=== PATIENT | female | born 1950 | race Caucasian/White ===

== ENCOUNTER 2024-11-14 11:04 | Emergency (ER) | payer OTHER ==
[~2024-11-14] VITALS: Ht 144.8 cm; Wt 58.1 kg
[2024-11-14] MEDS ORDERED: LIDOCAINE 1% INJ 50 ML MDV IJ ONE (11:31)
[2024-11-14] MEDS: TDAP [DIPH/PERTUSSIS/TET] 0.5 ML VIAL IM ONE (12:26)
[2024-11-14 13:08] VITALS: BP 151/82; TEMP 98.1; O2SAT 96
== END 2024-11-14 13:09 | disposition home or self-care (01) ==
LOC: ER 11:09
DX: S61.011A Laceration without foreign body of right thumb without damage to nail, initial encounter (principal); E11.9 Type 2 diabetes mellitus without complications; I10 Essential (primary) hypertension; W01.0XXA Fall on same level from slipping, tripping and stumbling without subsequent striking against object, initial encounter; Y93.89 Activity, other specified; Y92.89 Other specified places as the place of occurrence of the external cause; Y99.8 Other external cause status
CPT/HCPCS: 12002; 73140; 90471; 90715; 99283; A6403; J3490